=== PATIENT | female | born 1960 | race Caucasian/White ===

== ENCOUNTER 2016-11-10 16:48 | Emergency (ER) | payer MEDICARE, MEDICAID ==
[~2016-11-10] VITALS: Ht 157.5 cm; Wt 96.8 kg
[~2016-11-10 16:48] MED LIST: CARB200C4 PO; CITA20TA9 PO; GABA-529 PO; LEVO200 PO; LORA-192 PO; TRAM50TA4 PO; ZIPR40CA2 PO
[2016-11-10] MEDS ORDERED: BACL10TA PO (17:09)
[2016-11-10] MEDS ORDERED: LURA40 PO (17:09)
[2016-11-10] MEDS ORDERED: ALBU8.5H IH (17:09)
[2016-11-10] MEDS ORDERED: QUET50XR PO (17:09)
[2016-11-10] MEDS ORDERED: NAPR-58 PO (17:09)
[2016-11-10] MEDS ORDERED: NITR50CA PO (17:09)
[2016-11-10] MEDS ORDERED: SERT50TA12 PO (17:09)
[2016-11-10] MEDS ORDERED: SODIUM CHLORIDE 0.9% 1,000 ML IV ONE (17:43)
[2016-11-10] MEDS ORDERED: ONDANSETRON HCL 4 MG/2 ML VIAL IVP ONE (17:45)
[2016-11-10] MEDS ORDERED: KETOROLAC TROMETHAMINE 30 MG/ML VIAL IVP ONE (17:45)
[2016-11-10 18:04] LABS: BASOPHILS % (AUTO) 0.4 % (0.0-2.0); EOSINOPHILS % (AUTO) 2.7 % (1.0-6.0); HEMATOCRIT 39.8 % (36-46); HEMOGLOBIN 13.1 g/dL (12.0-16.0); LYMPHOCYTES # (AUTO) 2.9 K/uL (1.0-4.8); LYMPHOCYTES % (AUTO) 28.4 % (22.0-44.0); MEAN CORPUSCULAR HEMOGLOBIN 31.4 pg (26.0-34.0); MEAN CORPUSCULAR VOLUME 95 fL (80-100); MONOCYTES # (AUTO) 0.7 K/uL (0.1-1.0); NEUTROPHILS # (AUTO) 6.3 K/uL (1.8-7.7); NEUTROPHILS % (AUTO) 61.5 % (40.0-70.0); PLATELET COUNT (AUTO) 247 K/uL (150-450); RED BLOOD CELL COUNT(AUTO) 4.18 MIL/uL (4.00-5.20); RED CELL DISTRIBUTION WIDTH 15.2 % (11.5-14.5); WHITE BLOOD COUNT (AUTO) 10.2 K/uL (4.5-11.0)
[2016-11-10 18:11] LABS: APPEARANCE,URINE CLEAR (CLEAR); GLUCOSE, URINE (UA) NEGATIVE (NEGATIVE); OCCULT BLOOD,URINE NEGATIVE (NEGATIVE); PROTEIN,URINE NEGATIVE (NEGATIVE)
[2016-11-10 18:12] LABS: KETONES,URINE NEGATIVE (NEGATIVE); LEUKOCYTE ESTERASE ,URINE NEGATIVE (NEGATIVE)
[2016-11-10 18:13] LABS: ADD UA MICROSCOPIC NO
[2016-11-10 18:14] LABS: ANION GAP 7 mmol/L (8-16); CALCIUM, TOTAL 8.5 mg/dL (8.8-10.5); CARBON DIOXIDE 27 mmol/L (22-29); CHLORIDE 103 mmol/L (98-107); CREATININE 0.82 mg/dL (0.60-1.30); GLOMERULAR FILTR. RATE CALC > 60 mL/min (>60); POTASSIUM 4.2 mmol/L (3.5-5.1); SODIUM SERUM 137 mmol/L (136-145); UREA NITROGEN, BLOOD 7 mg/dL (7-18)
[2016-11-10 18:21] LABS: ALANINE AMINOTRANSFERASE 30 U/L (12-78); ALBUMIN 3.3 g/dL (3.4-5.0); ASPARTATE AMINOTRANSFERASE 20 U/L (15-37); BILIRUBIN,TOTAL 0.4 mg/dL (0.1-1.0); TOTAL PROTEIN, SERUM 6.3 g/dL (6.4-8.2)
[2016-11-10 20:30] VITALS: BP 124/65
[2016-11-10] MEDS ORDERED: MORPHINE SULFATE 4 MG/ML SYRINGE IM ONE (22:45)
[2016-11-10] MEDS ORDERED: PHENOBARB/HYOSCY/ATROPINE/SCOP TABLET PO ONE (22:45)
[2016-11-10] MEDS ORDERED: ONDANSETRON HCL 4 MG/2 ML VIAL IM ONE (22:45)
== END 2016-11-10 22:50 | disposition home or self-care (01) ==
LOC: EMS 16:50
DX: R14.0 Abdominal distension (gaseous) (principal); F17.210 Nicotine dependence, cigarettes, uncomplicated; Z88.0 Allergy status to penicillin
CPT/HCPCS: 36415; 71010; 74176; 80053; 81003; 83690; 85025; 96361; 96372; 96374; 96375; 99285; 99406; J1885; J2270; J2405; J7030

== ENCOUNTER 2016-11-15 13:52 | Emergency (ER) | payer MEDICARE, MEDICAID ==
[~2016-11-15] VITALS: Ht 163.8 cm; Wt 95.0 kg
[~2016-11-15 13:52] MED LIST changes: +ALBU8.5H IH; +BACL10TA PO; +LURA40 PO; +NAPR-58 PO; +NITR50CA PO; +QUET50XR PO; +SERT50TA12 PO
[2016-11-15 14:52] LABS: BASOPHILS % (AUTO) 0.4 % (0.0-2.0); EOSINOPHILS % (AUTO) 1.9 % (1.0-6.0); HEMATOCRIT 43.1 % (36-46); HEMOGLOBIN 14.3 g/dL (12.0-16.0); LYMPHOCYTES # (AUTO) 2.7 K/uL (1.0-4.8); LYMPHOCYTES % (AUTO) 27.6 % (22.0-44.0); MEAN CORPUSCULAR HEMOGLOBIN 31.7 pg (26.0-34.0); MEAN CORPUSCULAR HGB CONC 33.2 G/dL (31.0-37.0); MEAN CORPUSCULAR VOLUME 96 fL (80-100); MONOCYTES # (AUTO) 0.7 K/uL (0.1-1.0); MONOCYTES % (AUTO) 6.7 % (2.0-9.0); NEUTROPHILS # (AUTO) 6.2 K/uL (1.8-7.7); NEUTROPHILS % (AUTO) 63.4 % (40.0-70.0); PLATELET COUNT (AUTO) 309 K/uL (150-450); RED CELL DISTRIBUTION WIDTH 15.3 % (11.5-14.5); WHITE BLOOD COUNT (AUTO) 9.7 K/uL (4.5-11.0)
[2016-11-15 16:58] LABS: CALCIUM, TOTAL 9.4 mg/dL (8.8-10.5); CREATININE 0.98 mg/dL (0.60-1.30); POTASSIUM 4.3 mmol/L (3.5-5.1)
[2016-11-15 17:05] LABS: ALBUMIN 3.8 g/dL (3.4-5.0); BILIRUBIN,TOTAL 0.6 mg/dL (0.1-1.0); TOTAL PROTEIN, SERUM 7.4 g/dL (6.4-8.2)
[2016-11-15] MEDS ORDERED: DICYCLOMINE HCL 10 MG CAPSULE PO ONE (17:15)
[2016-11-15] MEDS ORDERED: KETOROLAC TROMETHAMINE 60 MG/2 ML VIAL IM ONE (17:15)
[2016-11-15 17:21] LABS: APPEARANCE,URINE CLEAR (CLEAR); GLUCOSE, URINE (UA) NEGATIVE (NEGATIVE); KETONES,URINE NEGATIVE (NEGATIVE); LEUKOCYTE ESTERASE ,URINE NEGATIVE (NEGATIVE); OCCULT BLOOD,URINE NEGATIVE (NEGATIVE); PH,URINE 5.5 (5.0-8.0); PROTEIN,URINE NEGATIVE (NEGATIVE)
[2016-11-15 17:22] LABS: ADD UA MICROSCOPIC NO
[2016-11-15] MEDS ORDERED: ACETAMINOPHEN 325 MG TABLET PO ONE (17:30)
[2016-11-15 19:15] VITALS: BP 133/89
== END 2016-11-15 19:48 | disposition home or self-care (01) ==
LOC: EMS 13:54
DX: R10.31 Right lower quadrant pain (principal); G89.29 Other chronic pain; F17.210 Nicotine dependence, cigarettes, uncomplicated; Z88.0 Allergy status to penicillin
CPT/HCPCS: 36415; 80053; 81003; 85025; 96372; 99284; J1885

== ENCOUNTER 2017-02-01 14:08 | Emergency (ER) | payer MEDICARE, MEDICAID ==
[~2017-02-01] VITALS: Ht 162.6 cm; Wt 84.0 kg
[2017-02-01] MEDS ORDERED: IPRATROPIUM BROMIDE 0.5 MG/2.5 ML NEB SOLUTION NEB ONE (14:45)
[2017-02-01] MEDS ORDERED: ALBUTEROL SULFATE 2.5 MG/0.5 ML NEB SOLUTION NEB ONE (14:45)
[2017-02-01] MEDS ORDERED: 0.9% SODIUM CHLORIDE 5 ML NEB SOLUTION NEB ONE (15:04)
[2017-02-01] MEDS ORDERED: BENZONATATE 100 MG CAPSULE PO ONE (15:30)
[2017-02-01] MEDS ORDERED: PredniSONE 20 MG TABLET PO ONE (15:30)
[2017-02-01] MEDS ORDERED: LOPERAMIDE HCL 2 MG CAPSULE PO ONE (15:30)
[2017-02-01] MEDS ORDERED: ALBUTEROL SULFATE HFA 90 MCG/PUFF 8 GM INHALER IH ONE (17:00)
[2017-02-01 17:10] VITALS: BP 150/88
== END 2017-02-01 18:28 | disposition home or self-care (01) ==
LOC: EMS 14:10
DX: J40 Bronchitis, not specified as acute or chronic (principal); Z88.0 Allergy status to penicillin; E03.9 Hypothyroidism, unspecified; F20.9 Schizophrenia, unspecified; Z90.49 Acquired absence of other specified parts of digestive tract; M79.7 Fibromyalgia; F17.210 Nicotine dependence, cigarettes, uncomplicated
CPT/HCPCS: 71010; 94640; 99284; 99406; J7512; J3535

== ENCOUNTER 2017-07-30 15:17 | Emergency (ER) | payer MEDICARE, MEDICAID ==
[~2017-07-30] VITALS: Ht 162.6 cm; Wt 72.7 kg
[~2017-07-30 15:17] MED LIST changes: -ALBU8.5H IH; +ALBU8.5H8 IH; -NITR50CA PO
[2017-07-30] MEDS ORDERED: PREG25 PO (15:57)
[2017-07-30 16:09] LABS: BASOPHILS % (AUTO) 0.5 % (0.0-2.0); HEMOGLOBIN 13.3 g/dL (12.0-16.0); LYMPHOCYTES # (AUTO) 2.8 K/uL (1.0-4.8); LYMPHOCYTES % (AUTO) 28.8 % (22.0-44.0); MEAN CORPUSCULAR HEMOGLOBIN 34.1 pg (26.0-34.0); MEAN CORPUSCULAR VOLUME 97 fL (80-100); MONOCYTES # (AUTO) 0.6 K/uL (0.1-1.0); NEUTROPHILS # (AUTO) 6.1 K/uL (1.8-7.7); NEUTROPHILS % (AUTO) 62.7 % (40.0-70.0); PLATELET COUNT (AUTO) 267 K/uL (150-450); RED BLOOD CELL COUNT(AUTO) 3.91 MIL/uL (4.00-5.20); RED CELL DISTRIBUTION WIDTH 15.4 % (11.5-14.5); WHITE BLOOD COUNT (AUTO) 9.8 K/uL (4.5-11.0)
[2017-07-30] MEDS ORDERED: HYDROCODONE/ACETAMINOPHEN 5-325 MG TABLET PO ONE (16:15)
[2017-07-30] MEDS ORDERED: LORazepam 1 MG TABLET PO ONE (16:15)
[2017-07-30] MEDS ORDERED: ALBUTEROL SULFATE 5 MG/ML 20 ML NEB SOLN [BULK] NEB ONE (16:30)
[2017-07-30] MEDS ORDERED: IPRATROPIUM BROMIDE 0.5 MG/2.5 ML NEB SOLUTION NEB ONE (16:30)
[2017-07-30] MEDS ORDERED: 0.9% SODIUM CHLORIDE 5 ML NEB SOLUTION NEB ONE (16:46)
[2017-07-30 16:52] LABS: ANION GAP 7 mmol/L (8-16); CALCIUM, TOTAL 8.4 mg/dL (8.8-10.5); CARBON DIOXIDE 30 mmol/L (22-29); CHLORIDE 96 mmol/L (98-107); CREATININE 1.13 mg/dL (0.60-1.30); GLOMERULAR FILTR. RATE CALC 49 mL/min (>60); POTASSIUM 4.4 mmol/L (3.5-5.1); SODIUM SERUM 133 mmol/L (136-145); UREA NITROGEN, BLOOD 17 mg/dL (7-18)
[2017-07-30 16:57] LABS: ALANINE AMINOTRANSFERASE 32 U/L (12-78); ALBUMIN 3.4 g/dL (3.4-5.0); ASPARTATE AMINOTRANSFERASE 17 U/L (15-37); BILIRUBIN,TOTAL 0.2 mg/dL (0.1-1.0); TOTAL PROTEIN, SERUM 6.7 g/dL (6.4-8.2)
[2017-07-30] MEDS ORDERED: DEXAMETHASONE SOD PHOS 4 MG/ML 5 ML VIAL IM ONE (17:00)
[2017-07-30 18:49] VITALS: BP 88/50
== END 2017-07-30 18:50 | disposition home or self-care (01) ==
LOC: EMS 15:19
DX: F41.9 Anxiety disorder, unspecified (principal); F31.9 Bipolar disorder, unspecified; J44.9 Chronic obstructive pulmonary disease, unspecified; G89.4 Chronic pain syndrome; M79.1 Myalgia; F17.210 Nicotine dependence, cigarettes, uncomplicated; F20.9 Schizophrenia, unspecified; E03.9 Hypothyroidism, unspecified; Z88.0 Allergy status to penicillin
CPT/HCPCS: 36415; 80053; 80307; 85025; 94644; 96372; 99285; 99407; G0480; J1100

== ENCOUNTER 2017-07-31 15:32 | Inpatient (IN) | payer MEDICARE, MEDICAID ==
[~2017-07-31] VITALS: Ht 162.6 cm; Wt 83.5 kg
[~2017-07-31 15:32] MED LIST changes: +PREG25 PO
[2017-07-31] MEDS ORDERED: 0.9% SODIUM CHLORIDE 5 ML NEB SOLUTION NEB ONE (16:50)
[2017-07-31] MEDS ORDERED: ALBUTEROL SULFATE 5 MG/ML 20 ML NEB SOLN [BULK] NEB ONE (17:00)
[2017-07-31] MEDS ORDERED: IPRATROPIUM BROMIDE 0.5 MG/2.5 ML NEB SOLUTION NEB ONE (17:00)
[2017-07-31 17:18] LABS: BASOPHILS % (AUTO) 0.3 % (0.0-2.0); EOSINOPHILS % (AUTO) 0.2 % (1.0-6.0); HEMATOCRIT 36.6 % (36-46); HEMOGLOBIN 12.8 g/dL (12.0-16.0); LYMPHOCYTES % (AUTO) 22.6 % (22.0-44.0); MEAN CORPUSCULAR HEMOGLOBIN 33.9 pg (26.0-34.0); MEAN CORPUSCULAR VOLUME 97 fL (80-100); MONOCYTES # (AUTO) 0.7 K/uL (0.1-1.0); MONOCYTES % (AUTO) 7.9 % (2.0-9.0); PLATELET COUNT (AUTO) 257 K/uL (150-450); RED BLOOD CELL COUNT(AUTO) 3.78 MIL/uL (4.00-5.20); RED CELL DISTRIBUTION WIDTH 15.7 % (11.5-14.5); WHITE BLOOD COUNT (AUTO) 8.8 K/uL (4.5-11.0)
[2017-07-31 17:51] LABS: ALANINE AMINOTRANSFERASE 27 U/L (12-78); ALBUMIN 3.2 g/dL (3.4-5.0); ANION GAP 12 mmol/L (8-16); ASPARTATE AMINOTRANSFERASE 29 U/L (15-37); CALCIUM, TOTAL 8.7 mg/dL (8.8-10.5); CARBON DIOXIDE 25 mmol/L (22-29); CHLORIDE 100 mmol/L (98-107); CREATININE 1.11 mg/dL (0.60-1.30); GLOMERULAR FILTR. RATE CALC 50 mL/min (>60); POTASSIUM 3.5 mmol/L (3.5-5.1); SODIUM SERUM 137 mmol/L (136-145); TOTAL PROTEIN, SERUM 6.6 g/dL (6.4-8.2); UREA NITROGEN, BLOOD 24 mg/dL (7-18)
[2017-07-31 18:03] LABS: BILIRUBIN,TOTAL 0.2 mg/dL (0.1-1.0)
[2017-07-31] MEDS ORDERED: ZOLPIDEM TARTRATE 10 MG TABLET PO PRN (19:30)
[2017-07-31] MEDS ORDERED: HALOPERIDOL 5 MG TABLET PO PRN (19:30)
[2017-07-31] MEDS ORDERED: LORazepam 2 MG TABLET PO PRN (19:30)
[2017-08-01 01:29] VITALS: BP 127/77
[2017-08-01] MEDS ORDERED: PNEUMOCOCCAL VACCINE POLYVALENT 0.5 ML VIAL [PPSV23] IM ONE (01:45)
[2017-08-01] MEDS ORDERED: INFLUENZA VIRUS VACCINE QVS 2017-18 (3YR+)/PF 60 MCG/0.5 ML SYRINGE IM ONE (01:45)
[2017-08-01 08:38] LABS: CHOL/HDL RATIO 4.5 (3.9-5.7)
[2017-08-01 09:02] VITALS: BP 145/79
[2017-08-01] MEDS: SERTRALINE HCL 50 MG TABLET PO SCH (12:24)
[2017-08-01] MEDS: LORazepam 0.5 MG TABLET PO SCH ×2 (13:44→16:49)
[2017-08-01 16:45] VITALS: BP 134/72
[2017-08-01] MEDS ORDERED: ALBUTEROL SULFATE 2.5 MG/0.5 ML NEB SOLUTION NEB PRN (17:15)
[2017-08-01] MEDS ORDERED: ALBUTEROL SULFATE HFA 90 MCG/PUFF 8 GM INHALER IH PRN (17:15)
[2017-08-01] MEDS ORDERED: IPRATROPIUM BROMIDE 0.5 MG/2.5 ML NEB SOLUTION NEB PRN (17:15)
[2017-08-01] MEDS: ZIPRASIDONE HCL 40 MG CAPSULE PO SCH (19:54)
[2017-08-01] MEDS: QUEtiapine FUMARATE 50 MG ER TABLET PO SCH (20:54)
[2017-08-01] MEDS ORDERED: CITALOPRAM HYDROBROMIDE 20 MG TABLET PO SCH (21:00)
[2017-08-02] MEDS: ZIPRASIDONE HCL 40 MG CAPSULE PO SCH ×2 (06:54→16:57)
[2017-08-02] MEDS: LEVOTHYROXINE SODIUM 200 MCG TABLET PO SCH (06:54)
[2017-08-02 07:04] LABS: CHOL/HDL RATIO 5.1 (3.9-5.7); CREATINE KINASE, TOTAL 30 U/L (26-192); THYROID STIMULATING HORMONE 0.46 uIU/mL (0.36-3.74)
[2017-08-02 07:30] LABS: HEMOGLOBIN A1C 5.8 % (4.5-6.2)
[2017-08-02 08:00] VITALS: BP 151/76
[2017-08-02 08:12] LABS: VITAMIN B12 LEVEL 317 pg/mL (211-911)
[2017-08-02] MEDS: LORazepam 0.5 MG TABLET PO SCH ×3 (08:23→16:02)
[2017-08-02] MEDS: SERTRALINE HCL 50 MG TABLET PO SCH (08:24)
[2017-08-02] MEDS: NICOTINE 21 MG/24 HOUR PATCH TD SCH (11:59)
[2017-08-02] MEDS ORDERED: TraMADol HCL 50 MG TABLET PO PRN (13:15)
[2017-08-02] MEDS ORDERED: PREGABALIN 25 MG CAPSULE PO SCH (13:15)
[2017-08-02] MEDS: BACLOFEN 10 MG TABLET PO SCH ×3 (13:55→21:00)
[2017-08-02 16:30] VITALS: BP 138/86
[2017-08-02] MEDS ORDERED: BACLOFEN 10 MG TABLET PO SCH (17:00)
[2017-08-02] MEDS: QUEtiapine FUMARATE 50 MG ER TABLET PO SCH (19:52)
[2017-08-02] MEDS: PREGABALIN 50 MG CAPSULE PO SCH (21:00)
[2017-08-03] MEDS: ZIPRASIDONE HCL 40 MG CAPSULE PO SCH ×2 (06:37→16:25)
[2017-08-03] MEDS: LEVOTHYROXINE SODIUM 200 MCG TABLET PO SCH (06:37)
[2017-08-03 07:01] LABS: HEPATITIS Bs ANTIGEN SCREEN P Negative (Negative); HEPATITIS C AB SCREEN <0.1 s/co ratio (0.0-0.9)
[2017-08-03 08:15] VITALS: BP 117/80
[2017-08-03] MEDS: SERTRALINE HCL 50 MG TABLET PO SCH (09:03)
[2017-08-03] MEDS: NICOTINE 21 MG/24 HOUR PATCH TD SCH (09:03)
[2017-08-03] MEDS: LORazepam 0.5 MG TABLET PO SCH ×3 (09:03→16:25)
[2017-08-03] MEDS: PREGABALIN 50 MG CAPSULE PO SCH ×4 (09:03→20:53)
[2017-08-03] MEDS: BACLOFEN 10 MG TABLET PO SCH ×4 (09:04→20:52)
[2017-08-03 19:00] VITALS: BP 122/78
[2017-08-03] MEDS: QUEtiapine FUMARATE 50 MG ER TABLET PO SCH (20:52)
[2017-08-04] MEDS: LEVOTHYROXINE SODIUM 200 MCG TABLET PO SCH (06:50)
[2017-08-04] MEDS: ZIPRASIDONE HCL 40 MG CAPSULE PO SCH ×2 (06:50→09:20)
[2017-08-04] MEDS ORDERED: ZIPRASIDONE HCL 60 MG CAPSULE PO SCH (07:30)
[2017-08-04 09:07] VITALS: BP 129/73
[2017-08-04] MEDS: SERTRALINE HCL 50 MG TABLET PO SCH (09:20)
[2017-08-04] MEDS: LORazepam 0.5 MG TABLET PO SCH ×2 (09:20→12:41)
[2017-08-04] MEDS: NICOTINE 21 MG/24 HOUR PATCH TD SCH (09:20)
[2017-08-04] MEDS: PREGABALIN 50 MG CAPSULE PO SCH ×2 (09:20→12:42)
[2017-08-04] MEDS: BACLOFEN 10 MG TABLET PO SCH ×2 (09:21→12:41)
[2017-08-04] MEDS ORDERED: LORA0.5T2 PO (10:11)
[2017-08-04] MEDS ORDERED: ZIPR60CA2 PO (10:11)
== END 2017-08-04 11:30 | disposition home or self-care (01) | DRG 885 ==
LOC: EMS 15:33 → 3EI 21:57
DX: F31.64 Bipolar disorder, current episode mixed, severe, with psychotic features (principal); R45.851 Suicidal ideations; G62.9 Polyneuropathy, unspecified; J44.9 Chronic obstructive pulmonary disease, unspecified; F20.9 Schizophrenia, unspecified; F41.9 Anxiety disorder, unspecified; E03.9 Hypothyroidism, unspecified; M79.7 Fibromyalgia; F17.290 Nicotine dependence, other tobacco product, uncomplicated; G89.4 Chronic pain syndrome; R73.9 Hyperglycemia, unspecified; N18.9 Chronic kidney disease, unspecified; E55.9 Vitamin D deficiency, unspecified; Z88.0 Allergy status to penicillin; Z90.49 Acquired absence of other specified parts of digestive tract; Z91.14 Patient's other noncompliance with medication regimen; Z90.710 Acquired absence of both cervix and uterus; Z79.899 Other long term (current) drug therapy; Z79.1 Long term (current) use of non-steroidal anti-inflammatories (NSAID); Z53.29 Procedure and treatment not carried out because of patient's decision for other reasons
CPT/HCPCS: 80074; 82306; 82607; 82746; 83036; 83735; 84439; 84443; 90471; 94644; 99285; G0480

== ENCOUNTER 2017-08-09 13:46 | Emergency (ER) | payer MEDICARE, MEDICAID ==
[~2017-08-09] VITALS: Ht 160 cm; Wt 77.3 kg
[~2017-08-09 13:46] MED LIST changes: -ALBU8.5H8 IH; -CARB200C4 PO; -CITA20TA9 PO; -GABA-529 PO; -LORA-192 PO; +LORA0.5T2 PO; -LURA40 PO; -NAPR-58 PO; -QUET50XR PO; -TRAM50TA4 PO; -ZIPR40CA2 PO; +ZIPR60CA2 PO
[2017-08-09] MEDS ORDERED: PREG75 PO (14:38)
[2017-08-09] MEDS ORDERED: LURA40 PO (14:38)
[2017-08-09] MEDS ORDERED: LORA1TAB3 PO (14:38)
[2017-08-09] MEDS ORDERED: UNKNOWN PAIN MED PO (14:38)
[2017-08-09] MEDS ORDERED: OxyCODONE HCL/ACETAMINOPHEN 5-325 MG TABLET PO ONE (15:30)
[2017-08-09 15:58] VITALS: BP 130/82
== END 2017-08-09 16:00 | disposition home or self-care (01) ==
LOC: EMS 13:50
DX: Z76.0 Encounter for issue of repeat prescription (principal); G89.29 Other chronic pain; J44.9 Chronic obstructive pulmonary disease, unspecified; E03.9 Hypothyroidism, unspecified; F17.210 Nicotine dependence, cigarettes, uncomplicated; Z88.0 Allergy status to penicillin
CPT/HCPCS: 93005; 99283

== ENCOUNTER 2017-10-20 18:45 | Inpatient (IN) | payer MEDICARE, MEDICAID ==
[~2017-10-20 18:45] MED LIST changes: -BACL10TA PO; +CARB200T6 PO; +LISI-662 PO; -LORA0.5T2 PO; +LORA1TAB3 PO; +LURA40 PO; +MET500 PO; +METH5TAB2 PO; +MULT-12 PO; -PREG25 PO; +PREG75 PO; +QUET200T PO; +UNKNOWN PAIN MED PO; -ZIPR60CA2 PO
[2017-10-20] MEDS: PREGABALIN 25 MG CAPSULE PO SCH (19:51)
[2017-10-20 20:32] VITALS: BP 132/78
[2017-10-20] MEDS: QUEtiapine FUMARATE 200 MG TABLET PO SCH (20:32)
[2017-10-20] MEDS ORDERED: MAGNESIUM HYDROXIDE SUSPENSION 30 ML UDCUP PO PRN (21:00)
[2017-10-20] MEDS ORDERED: BISACODYL 5 MG EC TABLET PO PRN (21:00)
[2017-10-20] MEDS ORDERED: IPRATROPIUM BROMIDE 0.5 MG/2.5 ML NEB SOLUTION NEB PRN (21:00)
[2017-10-20] MEDS ORDERED: ALBUTEROL SULFATE 2.5 MG/0.5 ML NEB SOLUTION NEB PRN (21:00)
[2017-10-20] MEDS ORDERED: ACETAMINOPHEN 325 MG TABLET PO PRN (21:00)
[2017-10-21 02:10] VITALS: BP 140/77
[2017-10-21] MEDS: LEVOTHYROXINE SODIUM 200 MCG TABLET PO SCH (06:38)
[2017-10-21 07:08] LABS: ALANINE AMINOTRANSFERASE 51 U/L (12-78); ALBUMIN 3.5 g/dL (3.4-5.0); ALKALINE PHOSPHATASE 172 U/L (46-116); ANION GAP 7 mmol/L (8-16); ASPARTATE AMINOTRANSFERASE 36 U/L (15-37); BILIRUBIN,TOTAL 0.3 mg/dL (0.1-1.0); CARBON DIOXIDE 30 mmol/L (22-29); CHLORIDE 103 mmol/L (98-107); CREATININE 0.72 mg/dL (0.60-1.30); GLOMERULAR FILTR. RATE CALC > 60 mL/min (>60); GLUCOSE,RANDOM 95 mg/dL (70-110); POTASSIUM 4.8 mmol/L (3.5-5.1); SODIUM SERUM 140 mmol/L (136-145); TOTAL PROTEIN, SERUM 6.7 g/dL (6.4-8.2); UREA NITROGEN, BLOOD 13 mg/dL (7-18)
[2017-10-21 08:15] VITALS: BP 130/58
[2017-10-21] MEDS: PREGABALIN 25 MG CAPSULE PO SCH ×3 (08:30→17:03)
[2017-10-21] MEDS: QUEtiapine FUMARATE 25 MG TABLET PO SCH ×3 (08:30→17:21)
[2017-10-21] MEDS: MULTIVITAMINS, THERAPEUTIC TABLET PO SCH (08:30)
[2017-10-21] MEDS: LISINOPRIL 20 MG TABLET PO SCH (08:30)
[2017-10-21] MEDS: DULoxetine HCL 20 MG CAPSULE PO SCH (08:31)
[2017-10-21] MEDS: DOCUSATE SODIUM 100 MG CAPSULE PO SCH ×2 (08:31→17:00)
[2017-10-21] MEDS: CarBAMazepine 200 MG TABLET PO SCH ×2 (08:31→17:03)
[2017-10-21] MEDS: PANTOPRAZOLE SODIUM 40 MG DR TABLET PO SCH (08:31)
[2017-10-21] MEDS: NICOTINE 14 MG/24 HOUR PATCH TD SCH (08:36)
[2017-10-21 08:40] LABS: BASOPHILS % (AUTO) 0.9 % (0.0-2.0); EOSINOPHILS % (AUTO) 3.1 % (1.0-6.0); HEMOGLOBIN 14.4 g/dL (12.0-16.0); LYMPHOCYTES # (AUTO) 2.2 K/uL (1.0-4.8); LYMPHOCYTES % (AUTO) 35.9 % (22.0-44.0); MEAN CORPUSCULAR HGB CONC 34.2 G/dL (31.0-37.0); MEAN CORPUSCULAR VOLUME 97 fL (80-100); MONOCYTES # (AUTO) 0.5 K/uL (0.1-1.0); MONOCYTES % (AUTO) 7.6 % (2.0-9.0); NEUTROPHILS # (AUTO) 3.3 K/uL (1.8-7.7); NEUTROPHILS % (AUTO) 52.5 % (40.0-70.0); PLATELET COUNT (AUTO) 366 K/uL (150-450); RED BLOOD CELL COUNT(AUTO) 4.36 MIL/uL (4.00-5.20)
[2017-10-21 16:24] VITALS: BP 138/74
[2017-10-21] MEDS: QUEtiapine FUMARATE 200 MG TABLET PO SCH (20:24)
[2017-10-22 02:05] VITALS: BP 115/64
[2017-10-22] MEDS: QUEtiapine FUMARATE 100 MG TABLET PO PRN ×2 (02:07→12:13)
[2017-10-22] MEDS: LEVOTHYROXINE SODIUM 200 MCG TABLET PO SCH (07:00)
[2017-10-22 08:15] VITALS: BP 146/92
[2017-10-22] MEDS: PANTOPRAZOLE SODIUM 40 MG DR TABLET PO SCH (09:07)
[2017-10-22] MEDS: DULoxetine HCL 20 MG CAPSULE PO SCH (09:07)
[2017-10-22] MEDS: QUEtiapine FUMARATE 25 MG TABLET PO SCH ×3 (09:07→16:35)
[2017-10-22] MEDS: LISINOPRIL 20 MG TABLET PO SCH (09:07)
[2017-10-22] MEDS: PREGABALIN 25 MG CAPSULE PO SCH ×3 (09:07→16:36)
[2017-10-22] MEDS: DOCUSATE SODIUM 100 MG CAPSULE PO SCH ×2 (09:07→16:43)
[2017-10-22] MEDS: CarBAMazepine 200 MG TABLET PO SCH ×2 (09:07→16:35)
[2017-10-22] MEDS: MULTIVITAMINS, THERAPEUTIC TABLET PO SCH (09:07)
[2017-10-22] MEDS: NICOTINE 14 MG/24 HOUR PATCH TD SCH (09:21)
[2017-10-22 14:18] LABS: EOSINOPHILS % (AUTO) 0.7 % (1.0-6.0); HEMATOCRIT 41.4 % (36-46); HEMOGLOBIN 14.2 g/dL (12.0-16.0); LYMPHOCYTES # (AUTO) 2.3 K/uL (1.0-4.8); LYMPHOCYTES % (AUTO) 38.6 % (22.0-44.0); MEAN CORPUSCULAR HEMOGLOBIN 32.6 pg (26.0-34.0); MEAN CORPUSCULAR HGB CONC 34.2 G/dL (31.0-37.0); MEAN CORPUSCULAR VOLUME 95 fL (80-100); MONOCYTES # (AUTO) 0.5 K/uL (0.1-1.0); NEUTROPHILS # (AUTO) 3.1 K/uL (1.8-7.7); NEUTROPHILS % (AUTO) 51.7 % (40.0-70.0); PLATELET COUNT (AUTO) 364 K/uL (150-450); RED BLOOD CELL COUNT(AUTO) 4.34 MIL/uL (4.00-5.20)
[2017-10-22 14:32] LABS: ALBUMIN 3.7 g/dL (3.4-5.0); BILIRUBIN,TOTAL 0.4 mg/dL (0.1-1.0); CALCIUM, TOTAL 9.5 mg/dL (8.8-10.5); CREATININE 1.06 mg/dL (0.60-1.30); POTASSIUM 4.2 mmol/L (3.5-5.1); TOTAL PROTEIN, SERUM 7.3 g/dL (6.4-8.2)
[2017-10-22 17:16] VITALS: BP 105/58
[2017-10-22] MEDS: QUEtiapine FUMARATE 200 MG TABLET PO SCH (21:00)
[2017-10-23] MEDS: LEVOTHYROXINE SODIUM 200 MCG TABLET PO SCH (06:42)
[2017-10-23] MEDS: QUEtiapine FUMARATE 25 MG TABLET PO SCH ×3 (09:09→16:10)
[2017-10-23] MEDS: PREGABALIN 25 MG CAPSULE PO SCH ×3 (09:10→16:10)
[2017-10-23] MEDS: LISINOPRIL 20 MG TABLET PO SCH (09:10)
[2017-10-23] MEDS: MULTIVITAMINS, THERAPEUTIC TABLET PO SCH (09:10)
[2017-10-23] MEDS: PANTOPRAZOLE SODIUM 40 MG DR TABLET PO SCH (09:10)
[2017-10-23] MEDS: DOCUSATE SODIUM 100 MG CAPSULE PO SCH ×2 (09:10→16:10)
[2017-10-23] MEDS: CarBAMazepine 200 MG TABLET PO SCH ×2 (09:10→16:10)
[2017-10-23] MEDS: DULoxetine HCL 20 MG CAPSULE PO SCH (09:10)
[2017-10-23] MEDS: NICOTINE 14 MG/24 HOUR PATCH TD SCH (09:11)
[2017-10-23 10:03] VITALS: BP 115/70
[2017-10-23 17:00] VITALS: BP 115/72
[2017-10-23] MEDS: QUEtiapine FUMARATE 200 MG TABLET PO SCH (20:39)
[2017-10-24] MEDS: LEVOTHYROXINE SODIUM 200 MCG TABLET PO SCH (07:27)
[2017-10-24] MEDS: CarBAMazepine 200 MG TABLET PO SCH ×2 (08:19→16:08)
[2017-10-24] MEDS: NICOTINE 14 MG/24 HOUR PATCH TD SCH (08:19)
[2017-10-24] MEDS: DULoxetine HCL 20 MG CAPSULE PO SCH (08:19)
[2017-10-24] MEDS: LISINOPRIL 20 MG TABLET PO SCH (08:19)
[2017-10-24] MEDS: PREGABALIN 25 MG CAPSULE PO SCH ×3 (08:19→16:08)
[2017-10-24] MEDS: MULTIVITAMINS, THERAPEUTIC TABLET PO SCH (08:19)
[2017-10-24] MEDS: QUEtiapine FUMARATE 25 MG TABLET PO SCH ×3 (08:19→16:08)
[2017-10-24] MEDS: PANTOPRAZOLE SODIUM 40 MG DR TABLET PO SCH (08:19)
[2017-10-24] MEDS: DOCUSATE SODIUM 100 MG CAPSULE PO SCH ×2 (08:25→16:08)
[2017-10-24 08:30] VITALS: BP 118/78
[2017-10-24 08:59] LABS: ABG BASE EXCESS -0.1 mmol/L (-2.0-3.0); ABG CARBOXYHEMOGLOBIN 0.8 % (0.0-1.5); ABG HCO3 24.4 mmol/L (22.0-26.0); ABG METHEMOGLOBIN 0.3 % (0.0-1.5); ABG OXYGEN CONTENT 19.1 mL/dL (15.0-23.0); ABG OXYHEMOGLOBIN 94.9 % (94.0-100.0); ABG PCO2 38 mmHg (35-45); ABG TOTAL HEMOGLOBIN 14.3 G/dL (12.0-18.0); PO2, ARTERIAL BG 78.1 mmHg (84.0-92.0); SOURCE, BLOOD GAS ARTERIAL; TEMPERATURE, FAHRENHEIT, BG 97.2 FAHREN (96.0-98.6)
[2017-10-24 09:00] LABS: SITE, BLOOD GAS RT RADIAL
[2017-10-24 18:16] VITALS: BP 114/62
[2017-10-24] MEDS: QUEtiapine FUMARATE 200 MG TABLET PO SCH (20:18)
[2017-10-25 06:31] VITALS: BP 118/68
[2017-10-25] MEDS: LEVOTHYROXINE SODIUM 200 MCG TABLET PO SCH (06:37)
[2017-10-25] MEDS: PREGABALIN 25 MG CAPSULE PO SCH ×2 (08:28→12:32)
[2017-10-25] MEDS: NICOTINE 14 MG/24 HOUR PATCH TD SCH (08:28)
[2017-10-25] MEDS: QUEtiapine FUMARATE 25 MG TABLET PO SCH ×2 (08:28→12:32)
[2017-10-25] MEDS: MULTIVITAMINS, THERAPEUTIC TABLET PO SCH (08:28)
[2017-10-25] MEDS: CarBAMazepine 200 MG TABLET PO SCH (08:28)
[2017-10-25] MEDS: DULoxetine HCL 20 MG CAPSULE PO SCH (08:28)
[2017-10-25] MEDS: LISINOPRIL 20 MG TABLET PO SCH (08:28)
[2017-10-25] MEDS: DOCUSATE SODIUM 100 MG CAPSULE PO SCH (08:28)
[2017-10-25] MEDS: PANTOPRAZOLE SODIUM 40 MG DR TABLET PO SCH (08:28)
[2017-10-25 08:30] VITALS: BP 141/88
[2017-10-25] MEDS ORDERED: QUET25TA PO (11:09)
[2017-10-25] MEDS ORDERED: DSS100 PO (11:10)
[2017-10-25] MEDS ORDERED: DULO20CA30 PO (11:11)
[2017-10-25] MEDS ORDERED: PANT40TA25 PO (11:12)
== END 2017-10-25 14:48 | disposition home or self-care (01) | DRG 885 ==
LOC: 3EX 18:45
DX: F25.1 Schizoaffective disorder, depressive type (principal); F11.20 Opioid dependence, uncomplicated; R45.851 Suicidal ideations; F23 Brief psychotic disorder; T40.3X1A Poisoning by methadone, accidental (unintentional), initial encounter; F17.200 Nicotine dependence, unspecified, uncomplicated; F41.9 Anxiety disorder, unspecified; G89.4 Chronic pain syndrome; G62.9 Polyneuropathy, unspecified; J44.9 Chronic obstructive pulmonary disease, unspecified; E03.9 Hypothyroidism, unspecified; E55.9 Vitamin D deficiency, unspecified; N18.9 Chronic kidney disease, unspecified; R73.9 Hyperglycemia, unspecified; M79.7 Fibromyalgia; F31.9 Bipolar disorder, unspecified; K21.9 Gastro-esophageal reflux disease without esophagitis; Y92.89 Other specified places as the place of occurrence of the external cause; Z79.899 Other long term (current) drug therapy; Z88.8 Allergy status to other drugs, medicaments and biological substances
CPT/HCPCS: 82652; 82805; 87081